=== PATIENT | female | born 1985 | race Asian ===

== ENCOUNTER 2017-01-21 06:21 | Inpatient (IN) | payer SELFPAY ==
[~2017-01-21] VITALS: Ht 154.9 cm; Wt 57.6 kg
[2017-01-21] MEDS ORDERED: OXYTOCIN/NORMAL SALINE 1,000 ML IV SCH (07:14)
[2017-01-21] MEDS ORDERED: LR 1,000 ML IV SCH (07:14)
[2017-01-21] MEDS ORDERED: TERBUTALINE SULFATE 1 MG/ML VIAL SUBCUT ONE (07:15)
[2017-01-21] MEDS ORDERED: DINOPROSTONE 10 MG SUPP VG ONE (07:15)
[2017-01-21 07:41] LABS: HEMATOCRIT 35.2 % (36-48); HEMOGLOBIN 12.2 g/dL (12.0-16.0); MEAN CORPUSCULAR HEMOGLOBIN 35 pg (27-31); MEAN CORPUSCULAR HGB CONC 35 % (32-36); MEAN CORPUSCULAR VOLUME 100 fL (79.0-98.0); PLATELET COUNT (AUTO) 218 K/uL (130-430); RED BLOOD CELL COUNT(AUTO) 3.51 MIL/uL (4.2-6.2); RED CELL DISTRIBUTION WIDTH 12.4 % (9.0-15.0); WHITE BLOOD COUNT (AUTO) 6.7 K/uL (4.8-10.8)
[2017-01-21 08:47] LABS: BASOPHILS % (MANUAL) 0 % (0-2); EOSINOPHILS % (MANUAL) 0 % (0-7); LYMPHOCYTES % (MANUAL) 36 % (20-46); MONOCYTES % (MANUAL) 4 % (0-11)
[2017-01-21 14:10] VITALS: BP_SYST 100
[2017-01-21] MEDS: NALBUPHINE HCL 10 MG/ML AMP IVP PRN (21:48)
[2017-01-22] MEDS: NALBUPHINE HCL 10 MG/ML AMP IVP PRN (01:16)
[2017-01-22] MEDS ORDERED: FENT2mCg/mL-ROPIVA0.2%/NS EPID 150 ML EP SCH (03:09)
[2017-01-22] MEDS ORDERED: FENT2mCg/mL-ROPIVA0.2%/NS EPID 150 ML EP ONE (03:09)
[2017-01-22] MEDS ORDERED: ACETAMINOPHEN 500 MG TABLET PO ONE (19:30)
[2017-01-22] MEDS ORDERED: GENTAMICIN 120 mg/100 mL NS 100 ML IV ONE (19:30)
[2017-01-22] MEDS ORDERED: AMPICILLIN SODIUM 2 GM in NS 100 ML IV ONE (19:30)
[2017-01-22] MEDS ORDERED: AMPICILLIN SODIUM 2 GM VIAL ONE (19:35)
[2017-01-22] MEDS ORDERED: CEFAZOLIN 2 GM IVPB PREMIX 50 ML IV ONE ×2 (20:19→20:30)
[2017-01-22] MEDS ORDERED: CITRIC ACID/SODIUM CITRATE 30 ML UDC PO ONE (20:30)
[2017-01-22] MEDS ORDERED: NALOXONE HCL 0.4 MG/ML AMP (NARCAN) IVP PRN (20:45)
[2017-01-22] MEDS ORDERED: ePHEDrine sulfate 50 MG/ML VIAL IVP PRN (20:45)
[2017-01-22] MEDS ORDERED: MEPERIDINE HCL/PF 25 MG/ML DISP.SYRIN IVP PRN ×2 (20:45)
[2017-01-22] MEDS ORDERED: KETOROLAC TROMETHAMINE 30 MG VIAL IVP PRN ×2 (20:45)
[2017-01-22] MEDS ORDERED: HYDROmorphone 2 MG/ML VIAL IVP PRN ×2 (20:45)
[2017-01-22] MEDS ORDERED: ONDANSETRON HCL 4 MG/2 ML VIAL IVP PRN ×2 (20:45)
[2017-01-22] MEDS ORDERED: DIPHENHYDRAMINE INJ 50 MG/ML VIAL IVP PRN (20:45)
[2017-01-22] MEDS ORDERED: MORPHINE SULFATE 10MG/10ML PF AMP EP SCH (20:45)
[2017-01-22] MEDS ORDERED: HYDROmorphone 1 MG INJ. 1 MG/ML AMPUL IVP PRN ×2 (20:45)
[2017-01-22] MEDS ORDERED: LR 1,000 ML IV SCH ×3 (20:45→22:30)
[2017-01-22] MEDS ORDERED: NALBUPHINE HCL 10 MG/ML AMP IVP PRN (20:45)
[2017-01-22 21:45] VITALS: BP_SYST 111
[2017-01-22] MEDS ORDERED: LORazepam 2 MG/ML VIAL ONE (21:52)
[2017-01-22] MEDS ORDERED: OXYTOCIN/NORMAL SALINE 1,000 ML IV ONE (21:52)
[2017-01-22] MEDS ORDERED: PROPOFOL DRIP 100 ML IV ONE (21:53)
[2017-01-22] MEDS ORDERED: LORazepam 2 MG/ML VIAL IVP ONE (21:55)
[2017-01-22 22:00] VITALS: BP_SYST 113
[2017-01-22] MEDS ORDERED: TEMAZEPAM 15 MG CAPSULE PO PRN (22:00)
[2017-01-22] MEDS ORDERED: BISACODYL 10 MG/SUPPOSITORY RC PRN (22:00)
[2017-01-22] MEDS ORDERED: RHO(D) IMMUNE GLOBULIN/MALTOSE 1500 UNITS/1.3 ML (WINHRO) IM PRN (22:00)
[2017-01-22] MEDS ORDERED: ANUSOL 1 EA SUPP.RECT (PREPARATION H) RC PRN (22:00)
[2017-01-22] MEDS ORDERED: HYDROcodone/ACETAMIN 5-325 MG TAB (NORCO/ VICODIN) PO PRN (22:00)
[2017-01-22] MEDS ORDERED: MEASLES,MUMPS&RUBELLA VACC/PF 12500 UNIT/0.5 ML VIAL SUBQ PRN (22:00)
[2017-01-22] MEDS ORDERED: LANOLIN 7 GM OINT. TP PRN (22:00)
[2017-01-22] MEDS ORDERED: DOCUSATE SODIUM 100 MG CAPSULE PO PRN (22:00)
[2017-01-22] MEDS ORDERED: ACETAMINOPHEN 325 MG TABLET PO PRN (22:00)
[2017-01-22] MEDS ORDERED: SENNOSIDES/DOCUSATE SODIUM 1 TAB TABLET(SENOKOT-S) PO PRN (22:00)
[2017-01-22 22:23] LABS: BASOPHILS # (AUTO) 0.3 K/uL (0.0-0.2); BASOPHILS % (AUTO) 2.5 % (0.0-2.0); HEMATOCRIT 36.7 % (36-48); HEMOGLOBIN 12.4 g/dL (12.0-16.0); LYMPHOCYTES # (AUTO) 1.6 K/uL (1.0-5.5); LYMPHOCYTES % (AUTO) 13.4 % (20.5-51.5); MEAN CORPUSCULAR HEMOGLOBIN 35 pg (27-31); MEAN CORPUSCULAR HGB CONC 34 % (32-36); MEAN CORPUSCULAR VOLUME 102 fL (79.0-98.0); MONOCYTES # (AUTO) 0.8 K/uL (0.0-1.0); MONOCYTES % (AUTO) 6.5 % (1.7-9.3); NEUTROPHILS # (AUTO) 9.3 K/uL (1.8-7.7); NEUTROPHILS % (AUTO) 77.6 % (40.0-70.0); PLATELET COUNT (AUTO) 216 K/uL (130-430); RED BLOOD CELL COUNT(AUTO) 3.58 MIL/uL (4.2-6.2); RED CELL DISTRIBUTION WIDTH 12.5 % (9.0-15.0)
[2017-01-22] MEDS: PROPOFOL DRIP 100 ML IV PRN (22:30)
[2017-01-22 22:36] LABS: ALBUMIN 2.3 g/dL (3.4-4.8); CALCIUM 8.1 mg/dL (8.4-11.0); CREATININE 0.95 mg/dL (0.55-1.30); INR 0.9 (0.8-1.2); POTASSIUM 3.4 mmol/L (3.5-5.1); PROTHROMBIN TIME 9.3 SECS (9.5-12.5); TOTAL BILIRUBIN 0.5 mg/dL (0.0-1.0)
[2017-01-22 23:00] VITALS: BP_SYST 100
[2017-01-22] MEDS ORDERED: NS 500 ML IV ONE (23:03)
[2017-01-23] VITALS (25 sets, daily range): BP systolic 80–116
[2017-01-23] MEDS ORDERED: ACETAMINOPHEN 650 MG SUPP.RECT RC PRN (00:15)
[2017-01-23] MEDS ORDERED: D5W IV ONE (00:46)
[2017-01-23] MEDS ORDERED: PIPERACILLIN/TAZOBACTAM 3.375 GM/VIAL (ZOSYN) IV ONE ×2 (00:46→05:26)
[2017-01-23] MEDS ORDERED: CLINDAMYCIN 900 MG/50 ML IV ONE (00:46)
[2017-01-23] MEDS: PIPERACILLIN/TAZO 3.375/DEX-IS 50 ML IV SCH ×4 (00:59→17:19)
[2017-01-23] MEDS: CLINDAMYCIN 900 MG in D5W 100 ML IV SCH ×3 (00:59→14:00)
[2017-01-23] MEDS: D5LR 1,000 ML IV SCH ×5 (01:00→19:30)
[2017-01-23] MEDS: PROPOFOL DRIP 100 ML IV PRN (04:21)
[2017-01-23] MEDS: IBUPROFEN 600 MG TABLET PO SCH ×3 (05:44→17:22)
[2017-01-23 07:20] LABS: BASOPHILS % (AUTO) 0.1 % (0.0-2.0); EOSINOPHILS % (AUTO) 0.2 % (0.0-4.0); HEMATOCRIT 28.5 % (36-48); LYMPHOCYTES # (AUTO) 1.2 K/uL (1.0-5.5); LYMPHOCYTES % (AUTO) 11.6 % (20.5-51.5); MEAN CORPUSCULAR HEMOGLOBIN 35 pg (27-31); MEAN CORPUSCULAR HGB CONC 34 % (32-36); MEAN CORPUSCULAR VOLUME 103 fL (79.0-98.0); MONOCYTES # (AUTO) 0.8 K/uL (0.0-1.0); MONOCYTES % (AUTO) 7.9 % (1.7-9.3); NEUTROPHILS # (AUTO) 8.4 K/uL (1.8-7.7); NEUTROPHILS % (AUTO) 80.2 % (40.0-70.0); PLATELET COUNT (AUTO) 155 K/uL (130-430); RED BLOOD CELL COUNT(AUTO) 2.76 MIL/uL (4.2-6.2); WHITE BLOOD COUNT (AUTO) 10.4 K/uL (4.8-10.8)
[2017-01-23 07:52] LABS: ALBUMIN 1.7 g/dL (3.4-4.8); CALCIUM 7.6 mg/dL (8.4-11.0); CREATININE 0.51 mg/dL (0.55-1.30); POTASSIUM 3.4 mmol/L (3.5-5.1); TOTAL BILIRUBIN 0.4 mg/dL (0.0-1.0)
[2017-01-23 07:54] LABS: PROTHROMBIN TIME 10.3 SECS (9.5-12.5)
[2017-01-23 07:55] LABS: HEMOGLOBIN 9.6 g/dL (12.0-16.0)
[2017-01-23 07:58] LABS: BASOPHILS % (AUTO) 0.1 % (0.0-2.0); EOSINOPHILS % (AUTO) 0.2 % (0.0-4.0); HEMATOCRIT 27.6 % (36-48); HEMOGLOBIN 9.3 g/dL (12.0-16.0); LYMPHOCYTES # (AUTO) 1.1 K/uL (1.0-5.5); LYMPHOCYTES % (AUTO) 12.2 % (20.5-51.5); MEAN CORPUSCULAR HEMOGLOBIN 34 pg (27-31); MEAN CORPUSCULAR HGB CONC 34 % (32-36); MEAN CORPUSCULAR VOLUME 102 fL (79.0-98.0); MONOCYTES # (AUTO) 0.9 K/uL (0.0-1.0); MONOCYTES % (AUTO) 9.1 % (1.7-9.3); NEUTROPHILS # (AUTO) 7.4 K/uL (1.8-7.7); NEUTROPHILS % (AUTO) 78.4 % (40.0-70.0); PLATELET COUNT (AUTO) 163 K/uL (130-430); RED BLOOD CELL COUNT(AUTO) 2.71 MIL/uL (4.2-6.2); RED CELL DISTRIBUTION WIDTH 12.5 % (9.0-15.0); WHITE BLOOD COUNT (AUTO) 9.4 K/uL (4.8-10.8)
[2017-01-23] MEDS ORDERED: POTASSIUM CHLORIDE 40 MEQ, LIDOCAINE JECT 2% PF 100 MG 75 MG in NS 250 ML IV ONE (09:00)
[2017-01-23] MEDS ORDERED: LORazepam 2 MG/ML VIAL IVP ONE (10:15)
[2017-01-23] MEDS ORDERED: CLINDAMYCIN PHOS 900 MG/ D5W 50 ML PREMIX IV SCH (14:00)
[2017-01-24] VITALS (13 sets, daily range): BP systolic 91–109
[2017-01-24] MEDS: D5LR 1,000 ML IV SCH ×2 (00:15→05:41)
[2017-01-24] MEDS: PIPERACILLIN/TAZO 3.375/DEX-IS 50 ML IV SCH ×3 (00:20→12:00)
[2017-01-24] MEDS: IBUPROFEN 600 MG TABLET PO SCH ×4 (00:21→20:25)
[2017-01-24 06:15] LABS: BASOPHILS % (AUTO) 0.4 % (0.0-2.0); EOSINOPHILS # (AUTO) 0.2 K/uL (0.0-0.4); EOSINOPHILS % (AUTO) 1.5 % (0.0-4.0); HEMATOCRIT 27.9 % (36-48); HEMOGLOBIN 9.4 g/dL (12.0-16.0); LYMPHOCYTES # (AUTO) 1.4 K/uL (1.0-5.5); LYMPHOCYTES % (AUTO) 13.5 % (20.5-51.5); MEAN CORPUSCULAR HEMOGLOBIN 35 pg (27-31); MEAN CORPUSCULAR HGB CONC 34 % (32-36); MEAN CORPUSCULAR VOLUME 103 fL (79.0-98.0); MONOCYTES # (AUTO) 0.7 K/uL (0.0-1.0); NEUTROPHILS # (AUTO) 8.2 K/uL (1.8-7.7); NEUTROPHILS % (AUTO) 77.6 % (40.0-70.0); PLATELET COUNT (AUTO) 173 K/uL (130-430); RED BLOOD CELL COUNT(AUTO) 2.71 MIL/uL (4.2-6.2); RED CELL DISTRIBUTION WIDTH 13.3 % (9.0-15.0); WHITE BLOOD COUNT (AUTO) 10.6 K/uL (4.8-10.8)
[2017-01-24 06:34] LABS: ALBUMIN 1.5 g/dL (3.4-4.8); CALCIUM 7.7 mg/dL (8.4-11.0); CREATININE 0.36 mg/dL (0.55-1.30); POTASSIUM 3.4 mmol/L (3.5-5.1); TOTAL BILIRUBIN 0.3 mg/dL (0.0-1.0)
[2017-01-24] MEDS ORDERED: POTASSIUM CHLORIDE 20 MEQ TAB.PRT.SR PO ONE (09:00)
[2017-01-24] MEDS ORDERED: COMMUNICATION ORDER XX ONE (09:30)
[2017-01-24 09:46] LABS: BASOPHILS % (AUTO) 0.4 % (0.0-2.0); EOSINOPHILS # (AUTO) 0.2 K/uL (0.0-0.4); EOSINOPHILS % (AUTO) 1.7 % (0.0-4.0); HEMATOCRIT 27.7 % (36-48); HEMOGLOBIN 9.1 g/dL (12.0-16.0); LYMPHOCYTES # (AUTO) 1.4 K/uL (1.0-5.5); LYMPHOCYTES % (AUTO) 13.4 % (20.5-51.5); MEAN CORPUSCULAR HEMOGLOBIN 34 pg (27-31); MEAN CORPUSCULAR HGB CONC 33 % (32-36); MEAN CORPUSCULAR VOLUME 102 fL (79.0-98.0); MONOCYTES # (AUTO) 0.8 K/uL (0.0-1.0); MONOCYTES % (AUTO) 7.3 % (1.7-9.3); NEUTROPHILS # (AUTO) 8.2 K/uL (1.8-7.7); NEUTROPHILS % (AUTO) 77.2 % (40.0-70.0); PLATELET COUNT (AUTO) 185 K/uL (130-430); RED BLOOD CELL COUNT(AUTO) 2.71 MIL/uL (4.2-6.2); WHITE BLOOD COUNT (AUTO) 10.6 K/uL (4.8-10.8)
[2017-01-24] MEDS ORDERED: MILK OF MAGNESIA 30 ML UDC PO PRN (13:15)
[2017-01-24] MEDS: SIMETHICONE 80 MG TAB.CHEW PO PRN ×2 (13:59→22:11)
[2017-01-24] MEDS: FERROUS SULFATE 325 MG TABLET.DR PO SCH ×2 (16:00→20:25)
[2017-01-24] MEDS: HYDROcodone/ACETAMIN 5-325 MG TAB (NORCO/ VICODIN) PO PRN ×2 (16:00→20:25)
[2017-01-25] MEDS: IBUPROFEN 600 MG TABLET PO SCH ×3 (02:07→14:30)
[2017-01-25] MEDS: FERROUS SULFATE 325 MG TABLET.DR PO SCH ×2 (10:12→14:30)
[2017-01-25] MEDS: HYDROcodone/ACETAMIN 5-325 MG TAB (NORCO/ VICODIN) PO PRN (10:20)
[2017-01-25] MEDS ORDERED: HYDROCORTISONE 1%, 28.35 GM TOPICAL CREAM TP SCH (10:45)
== END 2017-01-25 16:30 | disposition home or self-care (01) | DRG 765 ==
LOC: SPU 06:21 → OBSVTOIN 07:05 → SPU 11:01 → SIC 01-22 21:45 → SPU 01-24 12:30
PROVIDERS: ADMIT Obstetrics & Gynecology; ATTEND Obstetrics & Gynecology
PROC: 10D00Z1 Extraction of Products of Conception, Low, Open Approach (ICD-10-PCS; principal; 2017-01-22 20:00)
DX: O76 Abnormality in fetal heart rate and rhythm complicating labor and delivery (principal); J69.0 Pneumonitis due to inhalation of food and vomit; G93.40 Encephalopathy, unspecified; O99.354 Diseases of the nervous system complicating childbirth; O75.2 Pyrexia during labor, not elsewhere classified; O88.119 Amniotic fluid embolism in pregnancy, unspecified trimester; O99.284 Endocrine, nutritional and metabolic diseases complicating childbirth; O62.2 Other uterine inertia; E87.6 Hypokalemia; D50.0 Iron deficiency anemia secondary to blood loss (chronic); O33.8 Maternal care for disproportion of other origin; O36.60X0 Maternal care for excessive fetal growth, unspecified trimester, not applicable or unspecified; O99.52 Diseases of the respiratory system complicating childbirth; D72.829 Elevated white blood cell count, unspecified; Z3A.40 40 weeks gestation of pregnancy; Z37.0 Single live birth
CPT/HCPCS: 36415; 36600; 70450-TC; 71010; 80053; 82803-TC; 82962; 83605; 83735-TC; 85007; 85025; 85027; 85610-TC; 85730-TC; 86592; 86886; 86900; 86901; 87040-TC; 87070-TC; 87081; 87205-TC; 94002; 94003; 94010; 94640; 95816; G0378; J0290; J0690; J1170; J1580; J1885; J2060; J2300; J2310; J2543; J2590; J2704; J3010; J3480; J3490; J7030; J7050; J7060; J7120